=== PATIENT | male | born 1995 | race Two or more races ===

== ENCOUNTER 2018-11-02 22:22 | Emergency (ER) | payer OTHER ==
[~2018-11-02] VITALS: Ht 172.7 cm; Wt 68.9 kg
[2018-11-03] MEDS ORDERED: KETO10TA2 PO (00:03)
[2018-11-03] MEDS ORDERED: SKELAXIN800 MG PO (00:03)
[2018-11-03] MEDS ORDERED: DICLOFENAC SODI50 MG (00:13)
== END 2018-11-03 00:29 | disposition home or self-care (01) ==
LOC: ER 22:22
DX: S93.401A Sprain of unspecified ligament of right ankle, initial encounter (principal); X50.3XXA Overexertion from repetitive movements, initial encounter; Y93.66 Activity, soccer; Y92.89 Other specified places as the place of occurrence of the external cause; Y99.8 Other external cause status